=== PATIENT | male | born 1980 | race Caucasian/White ===

== ENCOUNTER 2016-08-10 00:30 | Emergency (ER) | payer OTHER ==
[2016-08-10 00:37] VITALS: BP 134/70; PULSE 84
--- NOTE | 2016-08-10 02:45 | PDOC ---
History of Present Illness - General Chief Complaint: Head/Neck problem Stated Complaint: FIGERS NUMB Time Seen by Provider: 08/10/16 02:22 - History of Present Illness Initial Comments: this 35-year-old man presents with a history of paresthesias of the distal portions of his second third fourth and fifth fingers of the right and left handsfor one day. Patient states that he was inebriated last night and believes he spent some time outside lying in the snow without gloves.when he awakened this morning at home, he noted the numbness/tingling in the tips of his fingers.he placed his hands in warm water throughout the day today. There was notime that the hands were white or cyanotic No history of frostbite or other vascular problems with his hands or feet. No history of daily smoking. Past History - Past Medical History Allergies/Adverse Reactions: Allergies Allergy/AdvReac Type Severity Reaction Status Date / Time No Known Allergies Allergy Verified 08/04/11 11:12 Home Medications: Ambulatory Orders No Home Medications 0 dose .ROUTE UTDICT 06/17/12 Oxycodone HCl/Acetaminophen [Percocet 5-325 mg Tablet] 1 tab PO Q6H PRN #0 tablet 06/27/12 Anemia: No Asthma: No Cancer: No Cardiac Disorders: No CVA: No COPD: No CHF: No Dementia: No Diabetes: No GI Disorders: No Disorders: No HTN: No Hypercholesterolemia: No Liver Disease: No Seizures: No Thyroid Disease: No - Surgical History Abdominal Surgery: No Appendectomy: No Cardiac Surgery: No Cholecystectomy: No Lung Surgery: No Neurologic Surgery: No Orthopedic Surgery: Yes (LEFT KNEE ARTHROSCOPY 2002) - Immunization History Immunization Up to Date: Yes - Psycho/Social/Smoking Cessation Hx Anxiety: No Suicidal Ideation: No Smoking Status: No Smoking History: Never smoked Years of Tobacco Use: 0 Have you smoked in the past 12 months: No Number of Cigarettes Smoked Daily: 0 Cigars Per Day: 0 Hx Alcohol Use: Yes (OCCASIONAL) Drug/Substance Use Hx: No Substance Use Type: Alcohol Hx Substance Use Treatment: No *Physical Exam - Vital Signs Last Vital Signs Temp Pulse Resp BP Pulse Ox 84 134/70 08/10/16 00:36 08/10/16 00:36 - Physical Exam Comments: adult male, alert and oriented 3,in no acute distress Adult female, alert and oriented 3, in no acute distress Vital signs as noted HEAD: No contusions, abrasions or lacerations of the scalp; no facial ecchymosis , deformities or tenderness EYES: Pupils equal, round and reactive to light, extraocular movements intact, sclera anicteric, conjunctiva clear PHARYNX: No erythema, exudate or edema; mucous membranes moist NECK: Supple, nontender, no masses or bruits LUNGS: Clear to auscultation bilaterally CARDIAC: S1, S2 normal; no extra sounds, rubs or murmurs heard ABDOMEN:Normoactive bowel sounds, nontender, no masses, no organomegaly EXTREMITIES: Normal range of motion, no edema,deformity or tenderness hands are warm and dry with Excellent capillary refill in all fingers, bilaterally; minimal light touch decrease distal phalanges second through fifth fingers bilaterally Radial pulses brisk bilaterally at the wrist NEUROLOGICAL: Cranial nerves II through XII grossly intact. Normal speech, normal gait.moving all 4 extremities equally, Sensation intact in all extremities. PSYCH: Normal mood, normal affect. SKIN: Warm, Dry, normal turgor, no rashes or lesions noted. *DC/Admit/Observation/Transfer Diagnosis at time of Disposition: [place] Qualifiers: Encounter type: initial encounter Qualified Code(s): T33.90XA - Superficial frostbite of unspecified sites, initial encounter - Discharge Dispostion Disposition: HOME Condition at time of disposition: Stable - Referrals Referrals: Prince Wing MD [Staff Physician] - - Patient Instructions Printed Discharge Instructions: DI for [place] Additional Instructions: continue soaks in comfortably warm water next 3 days avoid smoking followup with Dr Wing if you have numbness for more than 5 days
== END 2016-08-10 03:16 | disposition home or self-care (01) ==
LOC: FER 00:30
DX: T33.90XA Superficial frostbite of unspecified sites, initial encounter (principal); X58.XXXA Exposure to other specified factors, initial encounter; Y93.89 Activity, other specified; Y92.89 Other specified places as the place of occurrence of the external cause
CPT/HCPCS: 99281-25

== ENCOUNTER 2020-11-24 17:15 | Emergency (ER) | payer OTHER ==
[2020-11-24] MEDS ORDERED: IBUPROFEN 600 MG TABLET (FP) PO ONE ×2 (17:31→17:35)
[2020-11-24] MEDS ORDERED: ACETAMINOPHEN 325 MG TABLET (FP) PO ONE (17:31)
[2020-11-24] MEDS ORDERED: ACETAMINOPHEN 325 MG TABLET (FP) ONE (17:35)
[2020-11-24 17:49] VITALS: BP 138/98; PULSE 74; TEMP 97.9; BMI 24.3
== END 2020-11-24 18:50 | disposition home or self-care (01) ==
LOC: FER 17:15
DX: S92.354A Nondisplaced fracture of fifth metatarsal bone, right foot, initial encounter for closed fracture (principal)
CPT/HCPCS: 73610-TC-RT-FY; 73630-TC-RT-FY; 99283-25